=== PATIENT | female | born 1960 | race Asian ===

== ENCOUNTER 2018-08-04 06:29 | Inpatient (IN) | payer OTHER ==
[~2018-08-04] VITALS: Ht 160 cm; Wt 69.9 kg
[2018-08-04] VITALS (14 sets, daily range): BP systolic 106–160; BP diastolic 71–90
[~2018-08-04 06:29] MED LIST: AMLODIPINE BESYL5 MG ORAL; LOVASTATIN10 MG ORAL; VITAMIN B122500 MCG PO
[2018-08-04] MEDS ORDERED: ceFAZolin sod 1 GM in NS 55 ML IVPB ONE (07:00)
[2018-08-04] MEDS ORDERED: Gelfoam Absorbable 1gm powder pkt TOPIC ONE (07:00)
[2018-08-04] MEDS ORDERED: fentaNYL 100 mcg/2 mL IV ONE (07:02)
[2018-08-04] MEDS ORDERED: Lidocaine 1% MPF 10mg/ml 5ml ONE (07:02)
[2018-08-04] MEDS ORDERED: Midazolam 2mg/2ml Inj ONE (07:02)
[2018-08-04] MEDS ORDERED: Zemuron 50mg/5ml Inj IV ONE (07:10)
[2018-08-04] MEDS ORDERED: Succinylcholine 20mg/ml 10ml vial ONE (07:10)
[2018-08-04] MEDS ORDERED: Thrombin 5000 units spray kit TOPIC ONE (07:13)
[2018-08-04] MEDS ORDERED: Gelfoam Size TOPIC ONE (07:14)
[2018-08-04] MEDS ORDERED: Bupivacaine w/Epi 0.5% 30ml Vial INJ ONE (07:14)
[2018-08-04] MEDS ORDERED: Thrombin 5000 units TOPIC ONE ×2 (07:14→07:15)
[2018-08-04] MEDS ORDERED: Bacitracin 50000 Units Vial ONE (07:14)
[2018-08-04] MEDS ORDERED: NS Irrig 1000ml ONE (08:00)
[2018-08-04] MEDS ORDERED: LR 1000ml ONE ×2 (08:00)
[2018-08-04] MEDS ORDERED: Sterile Water Irrig 1000ml IRRIG ONE (08:00)
[2018-08-04] MEDS ORDERED: Propofol 1,000mg/ 100ml btl IV ONE (08:00)
--- NOTE | 2018-08-04 08:03 | Pre-Procedure Note/Attestation ---
Pre-Procedure Note/Attestation Complete Prior to Procedure Procedure Narrative: ACDF C567 Indications for Procedure Pre-Operative Diagnosis: C567 HNP Attestation I attest that I discussed the nature of the procedure; its benefits; risks and complications; and alternatives (and the risks and benefits of such alternatives ), prior to the procedure, with the patient (or the patient's legal medical collections representative). I attest that, if there was a reasonable possibility of needing a blood transfusion, the patient (or the patient's legal medical collections representative) was given the [facility] standardized written summary, pursuant to the Angel Ray Blood Safety Act ([place] Health and Safety Code # 1645, as amended). I attest that I re-evaluated the patient just prior to the surgery and that there has been no change in the patient's H&P, except as documented below: Maulik Bruno MD Aug 04, 2018 08:03
[2018-08-04] MEDS ORDERED: Morphine Sulfate 10mg/ml Inj ONE (08:51)
[2018-08-04] MEDS ORDERED: Ketorolac 30mg Inj ONE ×2 (08:52→08:55)
[2018-08-04] MEDS ORDERED: Glycopyrrolate 0.2mg/ml 1ml Vial ONE (08:52)
--- NOTE | 2018-08-04 09:06 | Anethesia Preoperative Eval ---
Anesthesia Pre-op PMH/ROS General Date of Evaluation: Aug 04, 2018 Time of Evaluation: 07:45 Anesthesiologist: Brad ASA Score: ASA 2 Mallampati Score Class I : Soft palate, uvula, fauces, pillars visible Class II: Soft palate, uvula, fauces visible Class III: Soft palate, base of uvula visible Class IV: Only hard plate visible Mallampati Classification: Class II Surgeon: Damion Diagnosis: Cervical radiculopathy Surgical Procedure: ACDF C5-C6-C7 Anesthesia History: none Family History: no anesthesia problems Allergies: Coded Allergies: No Known Allergies (Unverified , 08/03/18) Patient NPO?: Yes NPO Date: Aug 03, 2018 NPO Time: 1999 Past Medical History Cardiovascular: Reports: HTN - mild; Denies: CAD, PR, valve dz, arrhythmia, other Pulmonary: Denies: asthma, COPD, TAUTM, other Gastrointestinal/Genitourinary: Reports: GERD; Denies: CRI, ESRD, other Neurologic/Psychiatric: Reports: other - cronic pain; Denies: dementia, CVA, depression/anxiety, TIA Endocrine: Denies: DM, hypothyroidism, steroids, other HEENT: Denies: cataract (L), cataract (R), glaucoma, [place] (L), [place] (R), other Hematology/Immune: Denies: anemia, DVT, bleeding disorder, other Other: other - overweight PMH Narrative: as above PSxH Narrative: none Anesthesia Pre-op Phys. Exam Physician Exam Last Vital Signs Date Time Temp Pulse Resp B/P (MAP) Pulse Ox O2 Delivery O2 Flow Rate FiO2 08/04/18 07:19 97.1 68 20 157/81 (106) 98 08/04/18 07:03 Room Air Constitutional: NAD Neurologic: CN 2-12 intact Cardiovascular: RRR, no M/R/G Respiratory: CTA Gastrointestinal: S/NT/ND Airway Exam Mallampati Score: Class II MO: limited Neck: short stiff ROM: limited Teeth: intact Dentures: no upper, no lower Anesthesia Pre-op A/P Labs see chart Urine Test Test 08/04/18 06:45 Urine HCG, Qualitative Negative (NEGATIVE) Studies Pre-op Studies: EKG - NSR, CXR - WNL Risk Assessment & Plan Assessment: ASA 2 Plan: GA with ETT neuromonitoring Status Change Before Surgery: No Pre-Antibiotics Drug: Ancef 2gr, Given Within 1 Hr of Incision: Yes Time Given: 08:16 Francisco Salinas MD Aug 04, 2018 09:06
[2018-08-04] MEDS ORDERED: LR 1000ml 1,000 ML IVLG SCH (09:07)
[2018-08-04] MEDS ORDERED: Midazolam 2mg/2ml Inj IVP PRN (09:15)
[2018-08-04] MEDS ORDERED: Acetaminophen (Non formulary) 100 ML IV ONE (09:15)
[2018-08-04] MEDS ORDERED: DiphenhydrAMINE 50mg/ml Inj IVP PRN (09:15)
[2018-08-04] MEDS ORDERED: Ketorolac 30mg Inj IV PRN (09:15)
[2018-08-04] MEDS ORDERED: Meperidine 50mg/ml Inj(FOR RIGORS ONLY) IV PRN (09:15)
[2018-08-04] MEDS ORDERED: fentaNYL 100 mcg/2 mL IV PRN (09:15)
[2018-08-04] MEDS ORDERED: Metoclopramide 10mg/2ml Inj IVP PRN ×3 (09:15→12:15)
[2018-08-04] MEDS ORDERED: D5 1/2NS 1,000 ML IV SCH (10:15)
[2018-08-04] MEDS ORDERED: Milk of Magnesia 30ml Ud ORAL PRN (10:15)
--- NOTE | 2018-08-04 10:17 | Brief Operative Note ---
Immediate Post Operative Note Operative Note Pre-op Diagnosis: C567 HNP Procedure: acdf c567 Post-op Diagnosis: same as pre-op Findings: consistent w/pre-op dx studies Surgeon: malena Fruit Inspector: luke Anesthesiologist: danielle Anesthesia: general Specimen: none Complications: none Condition: stable Fluids: 800 Estimated Blood Loss: minimal Drains: none Implant(s) used?: Yes - 4 web cage, rti plate Maulik Bruno MD Aug 04, 2018 10:17
--- NOTE | 2018-08-04 10:37 | Immediate Post-Op Evaluation ---
Immediate Post-Op Evalulation Immediate Post-Op Evalulation Procedure: ACDF C5-C6-C7 Date of Evaluation: Aug 04, 2018 Time of Evaluation: 10:36 IV Fluids: 1000 Blood Products: none Estimated Blood Loss: <50 Urinary Output: 150 Blood Pressure Systolic: 109 Blood Pressure Diastolic: 75 Pulse Rate: 67 Respiratory Rate: 20 O2 Sat by Pulse Oximetry: 99 Temperature (Fahrenheit): 97.7 Pain Score (1-10): 1 Nausea: No Vomiting: No Complications none Patient Status: reacts, patent, extubated, none Hydration Status: adequate Francisco Salinas MD Aug 04, 2018 10:37
[2018-08-04] MEDS ORDERED: Morphine Sulfate 4mg/ml Inj (IV/IM USE ONLY) IM PRN ×2 (12:30→21:30)
[2018-08-04] MEDS ORDERED: HYDROcodone/Acetamin 10/325 tab ORAL PRN (12:30)
[2018-08-04] MEDS ORDERED: Chloraseptic Spray 20mL Bottle ORAL PRN (13:00)
--- NOTE | 2018-08-04 14:48 | Diagnostic Imaging Report ---
Indication: Neck pain. Technique: Intraoperative fluoroscopic images from spinal surgery submitted for archival the PACS. Operating surgeon: Maulik Bruno MD Total fluoroscopy time: 15.8 seconds Total fluoroscopy dose: 3.72 mGy. Comparison: None Findings: Multiple intraoperative fluoroscopic images submitted for archival the PACS. Initial image demonstrates an indwelling endotracheal tube, which is partially visualized. A surgical measurement projects at the level of C5-C6. Subsequent images demonstrate findings in keeping with anterior cervical discectomy and fusion spanning from C5 to C7 by means of an anterior plate affixed at each level with 2 screws. Artificial disc material/interbody spacers noted at C5-C6 and C6-C7. Linear radiodensities project over the right upper chest/lower neck on the labeled final view which may represent surgical material overlying the patient. Impression: Fluoroscopic images from spinal surgery as detailed above. Linear radiodensities project over the right upper chest/lower neck on the labeled final view which may represent surgical material overlying the patient. Consider follow-up portable chest radiograph to assess for persistence of this finding. This was discussed with the patient's treating nurse on 2 E. via telephone conversation approximately 2:25 PM. Findings were also discussed with Dr. Bruno via telephone conversation approximately 2:42 PM.
--- NOTE | 2018-08-04 15:15 | Operative Note - Dictated ---
DATE OF OPERATION: 08/04/2018 SURGEON: Maulik Bruno M.D. ARTIFICIAL BREEDING TECHNICIAN: Gonzalo Ontiveros M.D. ANESTHESIOLOGIST: Francisco Salinas M.D. ANESTHESIA TYPE: General endotracheal anesthesia. PREOPERATIVE DIAGNOSIS: Cervical disc herniation and discopathy C5-C6 and C6-C7 with bilateral right worse than left upper extremity radiculopathic pain. POSTOPERATIVE DIAGNOSIS: Cervical disc herniation and discopathy C5-C6 and C6-C7 with bilateral right worse than left upper extremity radiculopathic pain. PROCEDURE: 1. Wide and radical diskectomy, C5-C6 and C6-C7. 2. Decompression of spinal cord/neuroforamen and nerve roots. 3. Placement of interbody fusion device (RTI cage). 4. Use of Signafuse bone graft underground conduit installer as well as local autograft. 5. Anterior plating using the RTI plates. 6. Use of fluoroscopy. 7. Use of operating microscope. 8. Neurodiagnostic monitoring. 9. Cosmetic closure. ESTIMATED BLOOD LOSS: Minimal. FLUIDS: 800 mL. COMPLICATIONS: None. FINDINGS: Hypermobile segment at C6-C7 and to a lesser extent C5-C6. This necessitated using fixed angle screws in order to maintain additional stability and rigidity. Due to the hypermobility, however, there was increased likelihood and risk for the need of posterior fixation down the line. INDICATIONS: The patient is very pleasant woman with fairly severe and intractable neck pain with radiation to the upper extremities, right worse than left. Surgical options were discussed after conservative care had failed. The patient elected to proceed. OPERATIVE PROCEDURE IN DETAIL: The patient was taken to the operative suite. After general endotracheal anesthesia was obtained, Stephenson catheter was placed. She was positioned supine onto a radiolucent table. A bolster was placed between her shoulders. At this point, the neck was prepped and draped in usual sterile fashion after fluoroscopically the C6 level was identified. Attempts were made to make the incision through one of her skin creases; however, the skin was not mobile enough to allow us to go through a skin crease. At this point, the incision was marked out and infiltrated with Marcaine with epinephrine. A transverse incision was performed on the right side. The sternocleidomastoid was identified. The interval medial to the sternocleidomastoid was bluntly dissected and blunt dissection was carried out to the prevertebral fascia. The bone spurs at C5-C6 and C6-C7 were palpated. A needle was placed at C5-C6 and this level was confirmed. Self-retaining retractors were put in place. A rongeur was used to remove the anterior spur osteophytes. Franki posts were placed at C5 and subsequently at C6. A very thorough diskectomy and endplate preparation was performed using curettes, pituitaries, Kerrison punches. The posterior longitudinal ligament was removed in standard fashion using a 2 microset curette as well as #2 Kerrison punches. The dissection was carried out from neuroforamen to neuroforamen. Posterior spurs were noted bilaterally and these were drilled out with high-speed drill. Once satisfied with the decompression, a 6 mm lordotic RTI cage was chosen and it was packed with local autograft bone as well as Signafuse bone graft underground conduit installer. The periphery on the right and the left were also packed. A 4-WEB cage was inserted. Franki posts was removed from C5 and placed into C7. Distraction of the space was achieved. Hypermobility of the disk space was immediately noted both in terms of flexion and extension as well as with regards to rotation. At this point, it was elected that once ready to plate, the need for fixed angle screws would be required. At this point, the diskectomy, uncal vertebrectomy, osteophytectomy, and resection of the posterior longitudinal ligament was achieved identical to the upper level as previously described. At this point, I attempted to put in a 6 trial. However, the level was far too lax. A 7 trial was required in order to obtain bony apposition. This, however, did result in slight gapping of the facet joints consistent with the hypermobility. At this point, the appropriate sized 4-WEB cage was inserted and the periphery was packed with bone graft. At this juncture, copious irrigation was performed. A 30 mm plate was chosen. It was contoured into additional lordosis and applied to the vertebral body. A 14 millimeter fixed angle screws were placed at the 6. This allowed for a lag effect which then allowed for the plate to be pulled back to the vertebral bodies. At this juncture, fluoroscopic images were once again re-verified, 14 mm screws were placed at C7 and 16 mm screws were placed at the C5. Excellent bony apposition and bony purchase was achieved at all 6 screw sites. At this point, copious irrigation was performed. Additional bone graft material was placed at the periphery of the cages. Copious irrigation was performed. Decision was made to close. The platysma was repaired using 3-0 Vicryl subcutaneous closure using 4-0 Vicryl. Dermabond and sterile dressing was applied. The patient tolerated procedure well. [facility] Boris Bruno DR: Yoanna JOB#: [id number] CC:
[2018-08-04] MEDS: ceFAZolin sod 1 GM in D5W 55 ML IV SCH (15:41)
[2018-08-04] MEDS: Docusate Sod/Senna tab ORAL SCH (17:04)
--- NOTE | 2018-08-04 20:19 | Cardiology Progress Note ---
Assessment/Plan Assessment/Plan full ntoe dictated [id number] Objective Last 24 Hour Vital Signs Date Time Temp Pulse Resp B/P (MAP) Pulse Ox O2 Delivery O2 Flow Rate FiO2 08/04/18 18:24 97.1 08/04/18 16:00 97.1 58 16 129/83 (98) 97 08/04/18 13:13 97.6 60 18 128/77 (94) 98 08/04/18 13:00 97.4 58 16 124/82 (96) 99 08/04/18 12:05 98.2 59 18 126/72 (90) 100 08/04/18 11:59 Nasal Cannula 3.0 08/04/18 11:40 98.0 54 16 129/73 100 Nasal Cannula 3 08/04/18 11:37 98.0 08/04/18 11:35 53 15 128/81 100 Nasal Cannula 3 08/04/18 11:22 56 20 128/76 99 Nasal Cannula 3 08/04/18 11:07 63 20 123/84 99 Nasal Cannula 3 08/04/18 10:50 71 20 119/73 99 Simple Mask 8 08/04/18 10:42 61 20 106/71 99 Simple Mask 8 08/04/18 10:37 66 20 109/75 99 Simple Mask 8 08/04/18 10:37 67 20 99 08/04/18 10:32 97.8 67 20 111/74 99 Simple Mask 8 08/04/18 07:19 97.1 68 20 157/81 (106) 98 08/04/18 07:03 Room Air Laboratory Tests Test 08/04/18 06:45 Urine HCG, Qualitative Negative (NEGATIVE) Arun Casillas MD Aug 04, 2018 20:19
[2018-08-04] MEDS: D5 1/2NS 1,000 ML IV SCH (21:32)
[2018-08-04] MEDS: Hydromorphone 0.5mg/0.5ml inj IVP PRN (21:33)
--- NOTE | 2018-08-04 21:45 | Consultation ---
DATE OF CONSULTATION: 08/04/2018 CONSULTING PHYSICIAN: Vahe Kearns M.D. REFERRING PHYSICIAN: Maulik Bruno M.D. REASON FOR CONSULTATION: Acute pain consult. HISTORY OF PRESENT ILLNESS: Dear Dr. Maulik Bruno, Thank you kindly for consulting me to evaluate and render an opinion as to how to proceed in the management of the patient's acute postoperative cervical spine pain after her multilevel cervical spine instrumentation surgery today. I saw the patient at bedside on your request. The patient injured her neck after a work-related injury. She failed conservative treatment and required multiple level cervical spine instrumentation surgery today. She complains of significant discomfort. I spoke with you in detail along with nurse RN, Kishore I discussed the case with the hospital pharmacist. I saw the patient at bedside. We performed a detailed history and physical examination. I reviewed medical record in detail and devised the following analgesic plan. PAST MEDICAL HISTORY: 1. Acute postoperative cervical spine pain, status post cervical spine multiple level surgery by Dr. Maulik Bruno, July 2018. 2. Work-related injury. 3. obesity. 4. Hypertension. 5. Hypercholesterolemia. 6. Chronic back pain. PAST SURGICAL HISTORY: Denies. FAMILY HISTORY: Malignancy, coronary artery disease, hypertension. SOCIAL HISTORY: The patient lives with her in [place]. ALLERGIES: No known drug allergies. REVIEW OF SYSTEMS: Per the hospitalist. PHYSICAL EXAMINATION: VITAL SIGNS: Age 57. Height 5 feet and 2 inches, weight 154 pounds, body mass index 28. VITAL SIGNS: Afebrile, pulse 58, respirations 16, blood pressure 129/83, pulse oximetry 97% on room air. HEENT: Roxana collar. Neck dressing appears clean and dry. Significant discomfort with range of motion. The patient appears non-toxic. Moving all extremities x4. CHEST: Clear to auscultation. HEART: Regular rate and rhythm ABDOMEN: Soft. BREASTS: Deferred. GENITOURINARY: Deferred. NEUROLOGIC: Detailed neurologic exam per Dr. Bruno. DIAGNOSTIC TESTING: Shows urinalysis is negative. Urine toxicology screen negative. Preoperative 12-lead EKG shows normal sinus rhythm with ventricular rate 66. Preoperative chest x-ray shows no acute cardiopulmonary disease dated July 27, 2018. MRI cervical spine shows 2 mm anterolisthesis at C4 and C5, 3 mm retrolisthesis C5 and C6, C6-C7 with a 4 mm asymmetric broad base disc bulge. LABORATORY STUDIES: From July 27, 2018 shows glucose 111, sodium 138, potassium 4.0, chloride 104, bicarb 26, BUN 17, creatinine 0.9, calcium 11, total protein 7.2, albumin 4.7. AST 19, ALT 22, alkaline phosphatase 95, total bilirubin 0.4. White count 5, hematocrit 43, platelets 243. INR 0.9. PTT 25. IMPRESSION: 1. Acute postoperative cervical spine pain, status post cervical spine multiple level surgery by Dr. Maulik Bruno, July 2018. 2. Work-related injury. 3. obesity. 4. Hypertension. 5. Hypercholesterolemia. 6. Chronic back pain. TREATMENT RECOMMENDATIONS: I had the nurse place a Chloraseptic spray bottle at the bedside to help with topical sore throat complaints. I have ordered [place] 10/325 one tablet orally every three hours p.r.n. for mild pain. I have ordered Dilaudid intravenously 0.5 mg every two hours p.r.n. for severe pain. I would empirically place the patient on Pepcid b.i.d. for GI ulcer prophylaxis and I have also ordered p.r.n. dose of Mylanta 30 mL q.6 hours in case of any GERD symptom exacerbation. I have added a breakthrough dose of morphine 4 mg q.3 hours p.r.n. for moderate breakthrough pain. I have ordered Zofran 4 mg intravenously every 4 hours as a rescue antiemetic. The patient has had one episode of emesis already, but she states that her nausea symptoms have improved. We will slowly advance her diet as tolerated. I have ordered Benadryl 25 mg orally every 6 hours p.r.n. for itching complaints. I have ordered incentive spirometer to encourage good pulmonary toilet. The patient will ambulate for DVT prophylaxis and may need a prescription for pain medications at the time of discharge. Vahe Kearns M.D. DR: Mohan JOB#: [id number] CC:
--- NOTE | 2018-08-04 22:15 | Consultation ---
DATE OF CONSULTATION: 08/04/2018 INTERNAL MEDICINE CONSULTATION CONSULTING PHYSICIAN: Arun Casillas M.D. REFERRING PHYSICIAN: Maulik Bruno M.D. REASON FOR REFERRAL: Postoperative medical care. HISTORY OF PRESENT ILLNESS: This is a middle-aged female, who has been seen postoperatively after having surgery by Dr. Bruno for cervical neck pain. The patient had a cervical disc herniation with discopathy C5-C6 and C6-C7 bilateral with right worse than left upper extremity radiculopathic pain. Postoperatively, the patient has had some nausea and some vomiting. No chest pain. She did initially have some shortness of breath, but that apparently resolved. There is no PND or orthopnea. She had palpitation only when she walks to the bathroom. She did have some mild dizziness when she stood up. PAST MEDICAL HISTORY: Positive for history of chronic neck pain with radiculopathy, hypertension, hyperlipidemia, and low back pain. PAST SURGICAL HISTORY: No prior history of surgeries. ALLERGIES: No known drug allergies. FAMILY HISTORY: Father is . Mother is from cardiac arrest. Brother is healthy. There is a family history of cancer and heart disease and hypertension. SOCIAL HISTORY: Does not smoke or drink at the present time. No drug use. REVIEW OF SYSTEMS: GASTROINTESTINAL: She did have a bout of nausea and vomited once today. She has not had a bowel movement. GENITOURINARY: Slow to urinate, but no blood or burning. PULMONARY: Denies any coughing or wheezing. She does have some sore throat. CONSTITUTIONAL: Negative. NEUROLOGIC: She has not really had any recurrence of her symptoms that she had prior to surgery although she has not been moving around much. PHYSICAL EXAMINATION: GENERAL: Shows to be middle-aged female, in no respiratory distress. She is actually sitting up in bed. She has had some clear liquid dinner already. NECK: Covered with a hard collar. LUNGS: Clear to auscultation and percussion. CARDIAC: S1 is normal. S2 is normal. Regular rate and rhythm. ABDOMEN: Soft and nontender. Positive bowel sounds. EXTREMITIES: There is no edema. NEUROLOGICAL: She is awake, alert, and responsive. She moves all four extremities. LABORATORY VALUES: None postop. Preop, EKG, sinus rhythm, no ST or T-wave abnormalities. Chest x-ray showed no cardiopulmonary disease processes preop. Her blood tests showed a blood sugar of 111, BUN of 17, and creatinine 0.9. White count of 4.7, hemoglobin , and platelet count of 243,000. INR 0.9 and a PTT of 25. ASSESSMENT AND PLAN: 1. Radiculopathy, cervical. 2. Hypertension. 3. Hyperlipidemia. 4. Postop nausea and vomiting likely secondary to medication side effects. PLAN: The patient vital signs appeared to be stable with blood pressure 129/83 with a heart rate of 58 and temperature 97.1. The patient will be postoperatively followed. DVT prophylaxis with the use of pneumatic compression stockings and early ambulation. She is on a clear liquid diet. Advance as tolerated. Once she is able to walk and eat and have a bowel movement, she can be home likely in the next 24 hours or so. Arun Casillas M.D. DR: KANE JOB#: [id number] CC:
[2018-08-05] VITALS (7 sets, daily range): BP systolic 153–176; BP diastolic 85–101
[2018-08-05] MEDS: ceFAZolin sod 1 GM in D5W 55 ML IV SCH ×2 (00:22→08:32)
[2018-08-05] MEDS: Hydromorphone 0.5mg/0.5ml inj IVP PRN (02:44)
[2018-08-05] MEDS: D5 1/2NS 1,000 ML IV SCH (06:30)
[2018-08-05 06:32] LABS: BASOPHILS % (AUTO) 0.6 % (0.0-2.0); EOSINOPHILS % (AUTO) 0.2 % (0.0-3.0); HEMATOCRIT 38.5 % (37.0-47.0); HEMOGLOBIN 13.3 G/DL (12.0-16.0); LYMPHOCYTES % (AUTO) 14.2 % (20.0-45.0); MEAN CORPUSCULAR VOLUME 90 FL (80-99); MONOCYTES % (AUTO) 4.2 % (1.0-10.0); NEUTROPHILS % (AUTO) 80.9 % (45.0-75.0); PLATELET COUNT 214 K/UL (150-450); RED BLOOD COUNT 4.26 M/UL (4.20-5.40); RED CELL DISTRIBUTION WIDTH 11.1 % (11.6-14.8); WHITE BLOOD COUNT 8.3 K/UL (4.8-10.8)
[2018-08-05] MEDS: Docusate Sod/Senna tab ORAL SCH ×2 (08:32→18:36)
[2018-08-05] MEDS: Vitamin B-12 500mcg tab ORAL SCH ×2 (08:33→08:39)
--- NOTE | 2018-08-05 08:35 | Orthopedic Spine Progress Note ---
Ortho Spine - Progress Note Subjective Symptoms: c/o post-op neck pain, improved - as compared to pre-op Objective Vital Signs: Last 24 Hour Vital Signs Date Time Temp Pulse Resp B/P (MAP) Pulse Ox O2 Delivery O2 Flow Rate FiO2 08/05/18 08:33 68 171/89 08/05/18 00:12 98.2 58 18 154/90 (111) 98 08/04/18 21:00 Nasal Cannula 3.0 08/04/18 20:00 97.5 61 17 160/90 (113) 96 08/04/18 18:24 97.1 08/04/18 16:00 97.1 58 16 129/83 (98) 97 08/04/18 13:13 97.6 60 18 128/77 (94) 98 08/04/18 13:00 97.4 58 16 124/82 (96) 99 08/04/18 12:05 98.2 59 18 126/72 (90) 100 08/04/18 11:59 Nasal Cannula 3.0 08/04/18 11:40 98.0 54 16 129/73 100 Nasal Cannula 3 08/04/18 11:37 98.0 08/04/18 11:35 53 15 128/81 100 Nasal Cannula 3 08/04/18 11:22 56 20 128/76 99 Nasal Cannula 3 08/04/18 11:07 63 20 123/84 99 Nasal Cannula 3 08/04/18 10:50 71 20 119/73 99 Simple Mask 8 08/04/18 10:42 61 20 106/71 99 Simple Mask 8 08/04/18 10:37 66 20 109/75 99 Simple Mask 8 08/04/18 10:37 67 20 99 08/04/18 10:32 97.8 67 20 111/74 99 Simple Mask 8 I&O: Intake and Output 08/04/18 08/05/18 18:59 06:59 Intake Total 1760 ml 1785 ml Output Total 395 ml 100 ml Balance 1365 ml 1685 ml Intake Oral 260 ml 580 ml IV Total 1500 ml 1205 ml Output Urine Total 375 ml Emesis 100 ml Estimated Blood Loss 20 ml # Voids 1 3 Wound: clean Drains: none Neuro Status: normal Assessment Procedure Performed: acdf c567 Plan Plan: PT, pain management, discharge plan Maulik Bruno MD Aug 05, 2018 08:35
[2018-08-05] MEDS: Norco 5mg/325mg tab ORAL PRN ×2 (08:44→13:31)
--- NOTE | 2018-08-05 12:47 | 48 Hour Post Anesthesia Eval ---
Post Anesthesia Evaluation Procedure: ACDF C5-C6-C7 Date of Evaluation: Aug 05, 2018 Time of Evaluation: 12:46 Blood Pressure Systolic: 148 0: 76 Pulse Rate: 72 Respiratory Rate: 22 Temperature (Fahrenheit): 97.8 O2 Sat by Pulse Oximetry: 98 Airway: patent Nausea: No Vomiting: No Pain Intensity: 4 Hydration Status: adequate Cardiopulmonary Status: stable Mental Status/LOC: patient returned to baseline Follow-up Care/Observations: n/a Post-Anesthesia Complications: none Follow-up care needed: N/A Francisco Salinas MD Aug 05, 2018 12:47
--- NOTE | 2018-08-05 16:09 | Cardiology Progress Note ---
Assessment/Plan Assessment/Plan 1. Radiculopathy, cervical. 2. Hypertension. 3. Hyperlipidemia. 4. Postop nausea and vomiting likely secondary to medication side effects. ambualting eating has discharge order bp was elevatred earlier to day ivf dc bp still elelvated extra dose o norvasc administered home later today as bp imporves fuw with pmd or dr fernandez for bp recheck and adjustment of meds as needed Subjective Cardiovascular: Denies: chest pain, lightheadedness Respiratory: Denies: shortness of breath Gastrointestinal/Abdominal: Denies: abdominal pain Genitourinary: Denies: burning Objective Last 24 Hour Vital Signs Date Time Temp Pulse Resp B/P (MAP) Pulse Ox O2 Delivery O2 Flow Rate FiO2 08/05/18 15:57 72 148/76 08/05/18 12:47 72 22 98 08/05/18 12:00 97.9 68 19 176/101 (126) 100 08/05/18 09:14 97.6 08/05/18 09:00 Room Air 08/05/18 09:00 153/85 (107) 08/05/18 08:33 68 171/89 08/05/18 08:00 97.6 68 19 171/89 (116) 98 08/05/18 00:12 98.2 58 18 154/90 (111) 98 08/04/18 21:00 Nasal Cannula 3.0 08/04/18 20:00 97.5 61 17 160/90 (113) 96 08/04/18 18:24 97.1 General Appearance: no apparent distress Neck: supple Cardiovascular: normal rate, regular rhythm Respiratory/Chest: lungs clear, normal breath sounds Abdomen: normal bowel sounds, non tender, soft Extremities: no swelling Intake and Output 08/04/18 08/05/18 18:59 06:59 Intake Total 1760 ml 1785 ml Output Total 395 ml 100 ml Balance 1365 ml 1685 ml Intake Oral 260 ml 580 ml IV Total 1500 ml 1205 ml Output Urine Total 375 ml Emesis 100 ml Estimated Blood Loss 20 ml # Voids 1 3 Laboratory Tests Test 08/05/18 05:30 White Blood Count 8.3 K/UL (4.8-10.8) Red Blood Count 4.26 M/UL (4.20-5.40) Hemoglobin 13.3 G/DL (12.0-16.0) Hematocrit 38.5 % (37.0-47.0) Mean Corpuscular Volume 90 FL (80-99) Mean Corpuscular Hemoglobin 31.3 PG (27.0-31.0) H Mean Corpuscular Hemoglobin Concent 34.6 G/DL (32.0-36.0) Red Cell Distribution Width 11.1 % (11.6-14.8) L Platelet Count 214 K/UL (150-450) Mean Platelet Volume 7.5 FL (6.5-10.1) Neutrophils (%) (Auto) 80.9 % (45.0-75.0) H Lymphocytes (%) (Auto) 14.2 % (20.0-45.0) L Monocytes (%) (Auto) 4.2 % (1.0-10.0) Eosinophils (%) (Auto) 0.2 % (0.0-3.0) Basophils (%) (Auto) 0.6 % (0.0-2.0) Arun Casillas MD Aug 05, 2018 16:09
--- NOTE | 2018-08-05 18:15 | Progress Note ---
DATE: 08/05/2018 ACUTE PAIN MANAGEMENT PHYSICIAN PROGRESS NOTE MEDICATIONS: Medication administration record reviewed. Medications include Restoril, Jennifer-Colace, Chloraseptic spray, Zofran, morphine, Demerol, milk of magnesia, Dilaudid, [place], Pepcid, Benadryl, vitamin B12, Lipitor, Norvasc, Mylanta, and Tylenol. LABORATORY STUDIES: From this morning, August 05, 2018, shows white count 8, hematocrit 39, platelets 214,000. VITAL SIGNS: Blood pressure 153/85, pulse 72, respirations 22, oxygen saturation 98% on room air, afebrile. I saw the patient at the bedside after discussion with the nurse, PADMINI Cox, and discussion with the manager perioperative, Dr. Casillas. The patient has been ambulating well. She is breathing comfortably on room air. She is swallowing, breathing, and phonating within normal limits after her neck instrumentation surgery. She has been advancing her diet without any nausea. The patient's pain level did increase today and she has been using oral hydrocodone tablets without any adverse effects. I did leave a prescription for outpatient usage, the patient did state that her and her will find a location to fill the prescription. The patient does have mild headache, but her nausea symptoms have improved. The patient is neurologically grossly intact. Dr. Bruno evaluated the patient earlier today, and cleared her for discharge from a surgical standpoint, as soon as her blood pressure has become more stable. Dr. Casillas will be visiting the patient later today as the patient's systolic blood pressure readings have been reading 170 in several instances. The patient states that she has been on stable dose of Norvasc 5 mg nightly for several years. I will defer this management to Dr. Casillas. The patient will follow up with Dr. Richardson in the outpatient surgical clinic for followup. Her neck dressing appears clean and dry, and from a pain management perspective, I see no contraindication for discharge trial home with her once cleared by Dr. Casillas. Boris Mercer JOB#: [id number] CC:
[2018-08-05] MEDS ORDERED: NORCO 5-325 TA1 EACH ORAL (18:49)
--- NOTE | 2018-08-06 06:28 | Discharge Summary ---
Discharge Summary Discharge Summary _ DATE OF ADMISSION: 08/04/2018 DATE OF DISCHARGE: 08/05/2018 CONSULTANTS: Dr. Vahe Casillas BRIEF HOSPITAL COURSE: Patient is a 57-year-old female, with severe and intractable neck pain with radiation to the upper extremities, right worse than left. She failed conservative care to proceed with surgery.Patient was admitted on 08/04/2018 and underwent ACDF on C5-C6 and C6-C7. She tolerated procedure well. Surgery was uneventful. Post-operatively, patient was admitted for post-op care. She was placed on SCDs for DVT prophylaxis and was encouraged use of incentive spirometer. She was given pain management and was seen by boat painter. She had an episode of nausea and had 1 episode of emesis. Blood pressure was elevated. Dr. Casillas was consulted. She was given amlodipine. Patient was seen by PT and OT. Diet was advanced. Incision was clean, dry and intact. Patient was ambulating well with good pain control and tolerating diet. Patient was eventually cleared for discharge home. FINAL DIAGNOSES: Cervical disc herniation and discopathy C5-C6 and C6-C7 with bilateral right worse than left upper extremity radiculopathic pain Status post ACDF C5-C6 and C6-C7 (refer to operative report) Hypertension Hyperlipidemia Postop nausea and vomiting likely secondary to medication DISPOSITION: Patient was discharged home. DISCHARGE MEDICATIONS: Refer to Discharge Medication List. DISCHARGE INSTRUCTIONS: Follow-up in 1-2 weeks. I have been assigned to dictate discharge summary on this account, and I was not involved in the patient's management. Dorene Figueroa NP Aug 06, 2018 06:28
== END 2018-08-05 20:38 | disposition home or self-care (01) | DRG 473 ==
LOC: SDSOVERFLO 06:29 → 3E 11:52
PROC: 0RG20A0 Fusion of 2 or more Cervical Vertebral Joints with Interbody Fusion Device, Anterior Approach, Anterior Column, Open Approach (ICD-10-PCS; principal; 2018-08-04 08:00)
PROC: 0RT30ZZ Resection of Cervical Vertebral Disc, Open Approach (ICD-10-PCS; principal; 2018-08-04 08:00)
DX: M50.122 Cervical disc disorder at C5-C6 level with radiculopathy (principal); I10 Essential (primary) hypertension; E78.5 Hyperlipidemia, unspecified; E66.9 Obesity, unspecified; X58.XXXS Exposure to other specified factors, sequela; Y99.0 Civilian activity done for income or pay; G89.29 Other chronic pain; M54.9 Dorsalgia, unspecified; R11.2 Nausea with vomiting, unspecified; T50.905A Adverse effect of unspecified drugs, medicaments and biological substances, initial encounter
CPT/HCPCS: 36415; 72040; 76001; 81025; 85025; 86850; 86900; 86901; 87081; C9399; J2250; J2405